=== PATIENT | male | born 1970 | race Caucasian/White ===

== ENCOUNTER 2023-06-06 08:41 | Day surgery (SDC) | payer OTHER ==
[~2023-06-06] VITALS: Ht 180.3 cm; Wt 86.7 kg
[~2023-06-06 08:41] MED LIST: AMPDEX10 PO; FLUO10 PO; HYDACE5325 PO; METPHE10 PO; NORT10 PO; Naprosyn500 MG PO; Veetids 500500 MG PO; ZOLP10 PO; ZOLP5 PO
--- NOTE | 2023-06-06 10:43 | NUR ---
06/06/23 1043 Maddy Edward PATIENT IS PRONE WITH END OF BED DOWN WITH RIGHT LEG ON A FOAM KNEE STOVALL, LEFT LEG IN LEG STOVALL.
[2023-06-06 11:39] VITALS: BP 114/93
--- NOTE | 2023-06-06 12:52 | NUR ---
06/06/23 1252 Alexsander Huerta IV REMOVED INTACT. SITE WNL. PT REPORTED 4/10 PAIN UPON D/C. HE DESCRIBED PAIN TOLERABLE AND EXPRESSED EAGERNESS TO RETURN HOME.
== END 2023-06-06 12:45 | disposition home or self-care (01) ==
LOC: ORSCSDS 08:41
PROVIDERS: Orthopaedic Surgery
PROC: 0SBD4ZZ Excision of Left Knee Joint, Percutaneous Endoscopic Approach (ICD-10-PCS; principal; 2023-06-06 10:30)
DX: S83.232A Complex tear of medial meniscus, current injury, left knee, initial encounter (principal); M94.262 Chondromalacia, left knee; Z87.891 Personal history of nicotine dependence
CPT/HCPCS: J0171; J0690; J1100; J2250; J2405; J2704; J2795; J3010

== ENCOUNTER 2024-06-20 08:09 | Emergency (ER) | payer OTHER ==
[~2024-06-20] VITALS: Ht 180.3 cm; Wt 86.2 kg
[2024-06-20] MEDS ORDERED: OxyCODONE 5 mg/Acetamin 325 mg TABLET PO ONE (09:15)
[2024-06-20 09:42] VITALS: BP 115/82
[2024-06-20] MEDS ORDERED: Percocet 5-3251 EACH PO (11:30)
[2024-06-20] MEDS ORDERED: RX Prepack 6 Tabs Oxycodone 5mg UD ONE (11:50)
== END 2024-06-20 11:49 | disposition home or self-care (01) ==
LOC: ER 08:09
DX: M25.561 Pain in right knee (principal); Z87.891 Personal history of nicotine dependence
CPT/HCPCS: 73562-RT; 99283-25; A9270